=== PATIENT | female | born 1980 | race Caucasian/White ===

== ENCOUNTER 2016-05-22 13:33 | Outpatient (CLI) | payer OTHER | END 2016-05-22 13:43 | LOC: LAB 13:33 | PROVIDERS: ATTEND Family Medicine | DX: R50.9 Fever, unspecified (principal) | CPT/HCPCS: 87400 ==

== ENCOUNTER 2018-06-09 10:34 | Outpatient (CLI) | payer OTHER | END 2018-06-09 10:36 | LOC: LABRHC 10:34 | PROVIDERS: ATTEND Family Medicine | DX: Z00.00 Encounter for general adult medical examination without abnormal findings (principal); Z12.4 Encounter for screening for malignant neoplasm of cervix | CPT/HCPCS: 88148; G0143 ==